=== PATIENT | female | born 1990 | race African-American/Black ===

== ENCOUNTER 2019-10-16 21:09 | Emergency (ER) | payer MEDICAID ==
[~2019-10-16] VITALS: Ht 157.5 cm; Wt 59.0 kg
[2019-10-16 21:21] VITALS: BP 129/93
[2019-10-16 22:22] LABS: CLARITY URINE CLEAR (CLEAR); COLOR URINE YELLOW (YELLOW); KETONES URINE NEGATIVE (NEGATIVE); LEUKOCYTE ESTERASE URINE NEGATIVE (NEGATIVE); NITRITE URINE NEGATIVE (NEGATIVE); OCCULT BLOOD URINE NEGATIVE (NEGATIVE); PH URINE 5.5 (4.5-8.0); PROTEIN URINE NEGATIVE (NEGATIVE); SPECIFIC GRAVITY URINE 1.009 (1.005-1.030); UROBILINOGEN URINE 0.2 E.U./dL (0.2-1.0)
== END 2019-10-17 00:08 | disposition left against medical advice (07) ==
LOC: ER 21:48
DX: Z53.21 Procedure and treatment not carried out due to patient leaving prior to being seen by health care provider (principal)
CPT/HCPCS: 81003

== ENCOUNTER 2019-10-17 00:47 | Emergency (ER) | payer MEDICAID ==
[~2019-10-17] VITALS: Ht 162.6 cm; Wt 58.0 kg
[2019-10-17 03:26] LABS: EOSINOPHILS % 1.2 % (0.0-5.0); HEMATOCRIT. 39.4 % (36.0-48.0); HEMOGLOBIN. 13.6 g/dL (12.0-16.0); LYMPHOCYTES % 48.2 % (20.0-50.0); MEAN CORPUSCULAR HEMOGLOBIN 30.6 pg (28.0-32.0); MEAN CORPUSCULAR VOLUME 88.5 fL (81.0-99.0); MEAN PLATELET VOLUME 8.8 fl (7.4-10.4); MONOCYTES % 12.3 % (2.0-8.0); NEUTROPHILS % 37.3 % (40.0-76.0); PLATELET 239 x1000/uL (130-400); RED BLOOD CELL COUNT 4.45 mill/uL (4.2-5.4); RED CELL DISTRIBUTION WIDTH 12.6 % (11.6-14.6)
[2019-10-17 03:28] LABS: CHLORIDE 108 mEq/L (98-107)
[2019-10-17 03:32] LABS: ETHANOL BLOOD < 10 mg/dL
[2019-10-17 06:46] LABS: CLARITY URINE CLEAR (CLEAR); COLOR URINE YELLOW (YELLOW); KETONES URINE 1+ (NEGATIVE); LEUKOCYTE ESTERASE URINE NEGATIVE (NEGATIVE); NITRITE URINE NEGATIVE (NEGATIVE); OCCULT BLOOD URINE NEGATIVE (NEGATIVE); PROTEIN URINE NEGATIVE (NEGATIVE); SPECIFIC GRAVITY URINE 1.019 (1.005-1.030); UROBILINOGEN URINE 0.2 E.U./dL (0.2-1.0)
[2019-10-17 06:57] LABS: *AMPHETAMINES SCREEN URINE NEGATIVE (NEGATIVE)
[2019-10-17 06:58] LABS: *BARBITURATES SCREEN URINE NEGATIVE (NEGATIVE); *BENZODIAZEPINES SCREEN URINE NEGATIVE (NEGATIVE); *COCAINE SCREEN URINE NEGATIVE (NEGATIVE); METHADONE URINE SCREEN NEGATIVE (NEGATIVE); OPIATES URINE SCREEN NEGATIVE (NEGATIVE)
[2019-10-17 06:59] LABS: CANNABINOID URINE SCREEN NEGATIVE (NEGATIVE); PHENCYCLIDINE URINE SCREEN NEGATIVE (NEGATIVE)
[2019-10-17 09:50] VITALS: BP 120/70
== END 2019-10-17 09:52 | disposition home or self-care (01) ==
LOC: ER 00:47
DX: R63.0 Anorexia (principal); R53.81 Other malaise; R53.83 Other fatigue; R41.3 Other amnesia; F31.9 Bipolar disorder, unspecified; F43.10 Post-traumatic stress disorder, unspecified; Z68.21 Body mass index [BMI] 21.0-21.9, adult
CPT/HCPCS: 36415; 80048; 80305; 80307; 80320; 80329; 81003; 81025; 85025; 99285; G0480

== ENCOUNTER 2019-10-17 23:39 | Emergency (ER) | payer MEDICAID ==
[~2019-10-17] VITALS: Ht 157.5 cm; Wt 48.0 kg
[2019-10-18 04:35] VITALS: BP 106/68
[2019-10-19] MEDS ORDERED: ALPR-341 PO (18:02)
== END 2019-10-18 04:37 | disposition home or self-care (01) ==
LOC: ER 23:39
DX: F41.9 Anxiety disorder, unspecified (principal); I49.9 Cardiac arrhythmia, unspecified
CPT/HCPCS: 93005; 99283

== ENCOUNTER 2019-10-19 17:54 | Emergency (ER) | payer MEDICAID ==
[~2019-10-19] VITALS: Ht 157.5 cm; Wt 48.0 kg
[2019-10-19 17:56] VITALS: BP 138/67
[2019-10-19] MEDS ORDERED: ALPR-341 PO (18:02)
== END 2019-10-19 20:45 | disposition home or self-care (01) ==
LOC: ER 17:54
DX: F41.9 Anxiety disorder, unspecified (principal); F31.9 Bipolar disorder, unspecified; Z98.890 Other specified postprocedural states
CPT/HCPCS: 99283

== ENCOUNTER 2019-11-07 19:38 | Emergency (ER) | payer MEDICAID ==
[~2019-11-07 19:38] MED LIST: ALPR-341 PO
== END 2019-11-07 19:57 | disposition left against medical advice (07) ==
LOC: ER 19:38
DX: Z53.21 Procedure and treatment not carried out due to patient leaving prior to being seen by health care provider (principal)

== ENCOUNTER 2020-01-18 17:44 | Emergency (ER) | payer MEDICAID ==
[~2020-01-18] VITALS: Ht 162.6 cm; Wt 50.0 kg
[2020-01-18 21:15] LABS: CLARITY URINE CLEAR (CLEAR); COLOR URINE YELLOW (YELLOW); KETONES URINE 1+ (NEGATIVE); LEUKOCYTE ESTERASE URINE NEGATIVE (NEGATIVE); NITRITE URINE NEGATIVE (NEGATIVE); OCCULT BLOOD URINE NEGATIVE (NEGATIVE); PROTEIN URINE NEGATIVE (NEGATIVE); SPECIFIC GRAVITY URINE 1.007 (1.005-1.030); UROBILINOGEN URINE 0.2 E.U./dL (0.2-1.0)
[2020-01-18 21:15] LABS: BASOPHILS % 0.8 % (0.0-2.0); EOSINOPHILS % 0.7 % (0.0-5.0); HEMATOCRIT. 40.3 % (36.0-48.0); HEMOGLOBIN. 13.9 g/dL (12.0-16.0); LYMPHOCYTES % 49.8 % (20.0-50.0); MEAN CORPUSCULAR HEMOGLOBIN 30.5 pg (28.0-32.0); MEAN CORPUSCULAR VOLUME 88.3 fL (81.0-99.0); MEAN PLATELET VOLUME 9.1 fl (7.4-10.4); NEUTROPHILS % 42.7 % (40.0-76.0); PLATELET 248 x1000/uL (130-400); RED BLOOD CELL COUNT 4.57 mill/uL (4.2-5.4); RED CELL DISTRIBUTION WIDTH 12.5 % (11.6-14.6)
[2020-01-18 21:19] LABS: CHLORIDE 105 mEq/L (98-107)
[2020-01-18 21:24] LABS: ETHANOL BLOOD < 10 mg/dL
[2020-01-18 21:25] LABS: HCG SCREEN NEGATIVE
[2020-01-18 21:42] LABS: *AMPHETAMINES SCREEN URINE NEGATIVE (NEGATIVE); *BARBITURATES SCREEN URINE NEGATIVE (NEGATIVE); *BENZODIAZEPINES SCREEN URINE NEGATIVE (NEGATIVE); *COCAINE SCREEN URINE NEGATIVE (NEGATIVE); METHADONE URINE SCREEN NEGATIVE (NEGATIVE); OPIATES URINE SCREEN NEGATIVE (NEGATIVE); PHENCYCLIDINE URINE SCREEN NEGATIVE (NEGATIVE)
[2020-01-18 21:43] LABS: CANNABINOID URINE SCREEN NEGATIVE (NEGATIVE)
[2020-01-18] MEDS ORDERED: LORAZEPAM 1MG TABLET PO ONE (22:15)
[2020-01-18 23:18] VITALS: BP 128/79
== END 2020-01-18 23:18 | disposition home or self-care (01) ==
LOC: ER 17:44
DX: T50.905A Adverse effect of unspecified drugs, medicaments and biological substances, initial encounter (principal); F32.9 Major depressive disorder, single episode, unspecified; Z59.0 Homelessness; Y92.488 Other paved roadways as the place of occurrence of the external cause
CPT/HCPCS: 36415; 80053; 80305; 80307; 80320; 80329; 81003; 81025; 84703; 85025; 99283; G0480